=== PATIENT | female | born 1955 | race Caucasian/White ===

== ENCOUNTER 2021-08-06 07:43 | Day surgery (SDC) | payer OTHER ==
[2021-07-04 11:22] VITALS: BMI 44.6
[2021-08-06] MEDS ORDERED: PROPOFOL 20 ML ONE ×3 (10:57)
[2021-08-06 11:02] VITALS: TEMP 98.4
[2021-08-06 11:54] VITALS: BP 123/61; PULSE 82
== END 2021-08-06 12:00 | disposition home or self-care (01) ==
LOC: FASU-ENDO 07:43
PROVIDERS: ATTEND Internal Medicine Gastroenterology
PROC: 0DJD8ZZ Inspection of Lower Intestinal Tract, Via Natural or Artificial Opening Endoscopic (ICD-10-PCS; principal; 2021-08-06 10:38)
DX: Z12.11 Encounter for screening for malignant neoplasm of colon (principal); Z80.0 Family history of malignant neoplasm of digestive organs